=== PATIENT | female | born 1960 | race Caucasian/White ===

== ENCOUNTER → 2018-03-14 | Outpatient (CLI) | payer OTHER ==
[2014-09-22 10:18] VITALS: BMI 29.8
[~2018-03-14] MED LIST: Amoxicillin/Clavulanate K PO; HYDR12.556 PO; LOSA-51 PO
--- NOTE | 2018-03-17 18:01 | RADIOLOGY IMAGING REPORT ---
FACILITY: [facility] [place] PATIENT NAME: ANNALISA ARANA : [id number] MR: [id number] V: [id number] EXAM DATE: [id number] ORDERING PHYSICIAN: MASHA AGUILAR TECHNOLOGIST: Jenny King PROCEDURE:BILATERAL DIGITAL SCREENING MAMMOGRAM WITH CAD ASSISTED INTERPRETATION & 3D TOMOSYNTHESIS COMPARISON:Prior mammograms 01/10/17, 01/11/15, 08/06/13. INDICATIONS:SCREENING FINDINGS: A small to moderate amount of fibroglandular tissue is seen throughout the breasts. The parenchymal pattern has remained stable allowing for difference in mammographic technique & patient positioning. There is no evidence of malignant appearing mass, malignant appearing calcifications or other secondary sign of malignancy in either breast. DIAGNOSTIC CATEGORY 1--NEGATIVE. RECOMMENDATIONS: ROUTINE MAMMOGRAM AND CLINICAL EVALUATION. IMPRESSION: BIRADS 1: Negative. No significant abnormality is seen. Dictated by: Marilou Ayers M.D. on 03/17/2018 at 11:12 Transcribed by: HENRIK on 03/17/2018 at 13:29 Approved by: Marilou Ayers M.D. on 03/17/2018 at 18:01 [facility]
== END ==
LOC: MAMO 00:52
PROVIDERS: ATTEND Family Medicine
DX: Z12.31 Encounter for screening mammogram for malignant neoplasm of breast (principal)
CPT/HCPCS: 77063; 77067

== ENCOUNTER → 2019-02-03 | Outpatient (CLI) | payer OTHER ==
[2014-09-22 10:18] VITALS: BMI 29.8
--- NOTE | 2019-02-03 10:36 | RADIOLOGY IMAGING REPORT ---
FACILITY: [facility] PATIENT NAME: Antonio Saavedra : 1960 MR: [id number] V: [id number] EXAM DATE: ORDERING PHYSICIAN: MASHA AGUILAR TECHNOLOGIST: Location: [facility] Patient: Antonio Saavedra : 1960 Visit/Account:[id number] Date of Sevice: 02/03/2019 Limited abdominal ultrasound of the right upper quadrant Indication: Elevated liver enzymes , Comparison: CT 09/20/2014 Findings Liver is mildly enlarged and diffusely increased in echogenicity but with a normal contour and measur es 19.3 cm in length. There is normal hepatopedal portal venous flow. Areas of focal fatty sparing a re noted. Gallbladder wall thickness is 2.9 mm with no evidence of shadowing stone or sludge within the gallbla dder lumen. Negative sonographic Dyer's sign reported by the technologist. Common duct measures 3.5 mm in maximum diameter with no evidence of shadowing stone. The head and proximal body of the pancreas is unremarkable. The distal body and tail is obscured by o verlying bowel gas. Abdominal aorta and IVC are patent and unremarkable. The right kidney is normal in size, contour, and echotexture and measures 9.8 cm in length. IMPRESSION: 1. Mild hepatomegaly with diffusely increased echogenicity of the liver, diagnostic considerations in clude hepatic steatosis versus underlying hepatocellular disease Report Dictated By: Tj Perez at 02/03/2019 10:27 AM Report E-Signed By: Tj Perez at 02/03/2019 10:31 AM WSN:[email or web address]
--- NOTE | 2019-02-03 10:37 | RADIOLOGY IMAGING REPORT ---
FACILITY: [facility] - [place] PATIENT NAME: Antonio Saavedra : 1960 MR: [id number] V: [id number] EXAM DATE: ORDERING PHYSICIAN: MASHA AGUILAR TECHNOLOGIST: Location: [facility] Patient: Antonio Saavedra : 1960 Visit/Account:[id number] Date of Sevice: 02/03/2019 KIDNEYS HISTORY: Renal insufficiency COMPARISON: None. FINDINGS: Kidneys: Right kidney- 9.8 x 4.5 x 5.9 cm with normal parenchymal thickness and echogenicity. No ultrasound e vident renal mass lesion or stone. Left kidney- 12.5 x 4.8 x 5.7 cm with normal parenchymal thickness and echogenicity. No ultrasound e vident renal mass lesion or stone. Uniform and symmetric blood flow in each kidney by Doppler ultrasound. Hydronephrosis: None. Bladder: Morphologically unremarkable. Bilateral ureteric jets visualized. There was a small post v oid residual of 12 mL.. Abdominal aorta and IVC: Patent by Doppler ultrasound. IMPRESSION: Normal renal ultrasound Report Dictated By: Tj Perez at 02/03/2019 10:31 AM Report E-Signed By: Tj Perez at 02/03/2019 10:32 AM WSN:[email or web address]
== END ==
LOC: US 00:21
PROVIDERS: ATTEND Family Medicine
DX: K76.0 Fatty (change of) liver, not elsewhere classified (principal)